=== PATIENT | male | born 1970 | race Caucasian/White ===

== ENCOUNTER 2022-05-26 18:24 | Emergency (ER) | payer OTHER, SELFPAY ==
--- NOTE | ~2022-05-26 | XR_ITS ---
EXAM: XR finger 3rd LT min 2V DATE: 05/26/2022 18:46 HISTORY: distal palmar phalanx puncture after drilling metal . COMPARISON: None available. FINDINGS: Normal mineralization. No fracture or dislocation. No lytic or blastic lesion. Joint space s and physes are maintained. No erosion or periosteal change. Soft tissues within normal limits. IMPRESSION: No acute osseous finding in the left third finger. Reviewed, dictated and finalized at location K.
[2022-05-26 18:37] VITALS: BP 144/99; PULSE 100; RESP 18; TEMP 36.8; O2SAT 99
--- NOTE | 2022-05-26 19:33 | ED.UPPEXIN ---
HPI - Extremity Injury (Upper) General Chief Complaint: Extremity Injury, Upper Stated Complaint: Finger Injury Time Seen by Provider: 05/26/22 19:33 Source: patient, RN notes reviewed and old records reviewed Mode of arrival: ambulatory Limitations: no limitations History of Present Illness HPI narrative: 51 year old male presents to express care with complaints of drilling on a bracket to put on motorcycle he felt like piece of metal went into his middle distal marin aspect of his left finger. Patient reports that he used some tweezers to try to remove metal but didn't obtain any, states his finger is sore and throbbing and it is swollen. Finger soaked in peroxide and [employer] solution and finger examined under magnification with no metal noted to finger upon examination. MD complaint: injury to: left and hand (distal middle finger) Onset (ago): hour(s) (3) Handedness: right Treatments prior to arrival: other (used tweezer to try to remove) Related Data Allergies Allergy/AdvReac Type Severity Reaction Status Date / Time No Known Allergies Allergy Verified 05/26/22 18:41 Review of Systems Review of Systems: CONSTITUTIONAL: Denies fever, chills, or sweats. CARDIOVASCULAR: Denies chest pain, palpitations, or edema. RESPIRATORY: Denies cough or dyspnea. SKIN: Denies rash or itching. Denies lacerations or abrasions MUSCULOSKELETAL: Reports possible foreign body left middle distal marin aspect of finger NEUROLOGIC: Denies numbness, or weakness. All systems reviewed & are unremarkable except as noted in HPI and below PMFSH Past Medical History Medical History (Updated 05/28/22 @ 22:55 by Faith León NP) Fracture of femur, right, open Required ORIF to repair Social History Social History (Updated 05/28/22 @ 22:57 by Faith León NP) Smoking status: Never smoker Alcohol intake: unknown Substance use: unknown Gender identity (if verbalized by the patient): Male Comments At time of signature, agree with nursing past medical, surgical, social and family history. There is no relevant family history pertinent to the presenting complaint Exam Narrative: GENERAL: Well-appearing, well-nourished, and in no acute distress. HEAD: Normocephalic, atraumatic. EYES: PERRLA and EOMI. ENT: Nares clear, no rhinorrhea or epistaxis. Mucous membranes moist.TMs normal with good light reflex, throat pink no swelling NECK: Supple.no lymphadenopathy CHEST: Clear to auscultation. No respiratory distress. HEART: Regular rate and rhythm. No murmur heard. Normal peripheral pulses. ABDOMEN: Soft, nontender, nondistended, normal active bowel sounds. EXTREMITIES: Normal range of motion. No edema. reports pain to distal middle marin aspect of left middle finger, no acute redness some mild swelling to finger noted. no tingling or numbness reported to finger has full mobility, nail bed blanches briskly SKIN: Warm, dry, no rash. NEURO: No focal deficits. Alert and oriented x3. Course Course Level of Care: Express Care Visit Vital Signs Vital signs: Vital Signs Temperature 36.8 C 05/26/22 18:37 Pulse Rate 100 05/26/22 18:37 Respiratory Rate 18 05/26/22 18:37 Blood Pressure 144/99 H 05/26/22 18:37 Pulse Oximetry 99 05/26/22 18:37 Oxygen Delivery Room Air 05/26/22 18:37 Temperature 36.8 C 05/26/22 18:37 Pulse Rate 100 05/26/22 18:37 Respiratory Rate 18 05/26/22 18:37 Blood Pressure 144/99 H 05/26/22 18:37 Pulse Oximetry 99 05/26/22 18:37 Oxygen Delivery Room Air 05/26/22 18:37 MDM - Extremity Injury (Upper) MDM Narrative Medical decision making narrative: Patient's injury and or pain is consistent with musculoskeletal etiology. No signs of neurological or vascular compromise on exam. Compartments and tissues are soft without signs of compartment syndrome. Pain is felt appropriate for evaluation on outpatient basis. Differential Diagnosis Differential diagnosis: Likely other
== END 2022-05-26 19:55 | disposition home or self-care (01) ==
PROVIDERS: Emergency Provider Registered Nurse; PCP Family Medicine
DX: M79.645 Pain in left finger(s) (principal)
CPT/HCPCS: 73140; 99213; G0463